=== PATIENT | female | born 1970 | race Caucasian/White ===

== ENCOUNTER 2018-07-19 16:16 | Inpatient (IN) | payer OTHER ==
[~2018-07-19] VITALS: Ht 167.6 cm; Wt 104.3 kg
--- OUTSIDE RECORDS SUMMARY | 2018-07-19 16:19 | XMS REPORT | Summary of Care ---
Author Author JORGE SHELTON M.D. Organization Unknown Address [facility] Phone Unavailable Care Team Providers Care Last Waxer Name Role Phone JORGE SHELTON M.D. Unavailable Unavailable VALERIE LEIVA, ALEENA Roberts Unavailable Unavailable Unavailable Unavailable Functional Status Name Dates Details Functional status health issues are not documented Status: Name Dates Details Cognitive status health issues are not documented Status: Problems Name Dates Details Raised antibody titer (795.79, R76.0) Status: Active Inflammatory arthritis (714.9, M19.90) Status: Active Medications Name Dates Details Ibuprofen 800 MG Oral Tablet PRN Active Tylenol TABS * Refills: 0 Active Allergies and Adverse Reactions Name Dates Details codeine (Allergy) Status: Active Procedures Procedure Dates Details [Q] LEA IFA SCREEN W/REFL TO TITER/PATTERN,IFA(REFL) Date: 05-Oct-2017 [QLH] COMPLEMENT COMPONENT C3C Date: 05-Oct-2017 [QLH] COMPLEMENT COMPONENT C4C Date: 05-Oct-2017 [QLH] DNA (DS) ANTIBODY Date: 05-Oct-2017 XRAY Hand AP lateral oblique Bilateral 70032 Date: 05-Oct-2017 XRAY Foot 3 views Bilateral [id number] Date: 05-Oct-2017 XRAY Spine cervical 2 or 3 view [id number] Date: 05-Oct-2017 Immunization Name Dates Details Immunizations not documented Social History Name Dates Details Unknown if ever smoked Vital Signs Date Test Result Details [id number] BP Systolic 126 mm[Hg] Status: Comments: Location: LUE; Position: Sitting BP Diastolic 86 mm[Hg] Status: Comments: Location: LUE; Position: Sitting Height 65 in Status: Weight 230 lb Status: Body Mass Index Calculated 38.27 kg/m2 Status: Body Surface Area Calculated 2.1 m2 Status: Heart Rate 90 /min Status: Comments: Location: L Carotid; Results Date Description Value Details Results not documented Plan of Care Name Dates Details Planned Observations Planned Goals not documented Planned Encounters Appointment; JORGE SHELTON M.D. On: 19-Oct-2017 8:00 Interventions Provided Labs/Procedures/Imaging* [Q] LEA IFA SCREEN W/REFL TO TITER/PATTERN,IFA(REFL); To Be Done: 05 Oct 2017 * [QLH] COMPLEMENT COMPONENT C3C; To Be Done: 05 Oct 2017 * [QLH] COMPLEMENT COMPONENT C4C; To Be Done: 05 Oct 2017 * [QLH] DNA (DS) ANTIBODY; To Be Done: 05 Oct 2017 * XRAY Foot 3 views Bilateral 56369; To Be Done: 05 Oct 2017 * XRAY Hand AP lateral oblique Bilateral 81557; To Be Done: 05 Oct 2017 * XRAY Spine cervical 2 or 3 view [id number]; To Be Done: 05 Oct 2017 Instructions Name Dates Details Instructions not documented Encounters Appointment; JORGE SHELTON M.D. Encounter Diagnosis: Problem not documented On: 05-Oct-2017 11:00
--- OUTSIDE RECORDS SUMMARY | 2018-07-19 16:19 | XMS REPORT | Summary of Care ---
Author Author [facility] Outpatient Imaging [facility] Address Unknown Phone Unavailable Encounter HQ Encntr_alias(FIN) [id number] Date(s): 10/12/17 - 10/12/17 [facility] Outpatient Imaging [facility] [address] [facility], [address] [place] [phone] Discharge Disposition: Home or Self Care Attending Physician: Clari Rashid MD Vital Signs No data available for this section Problem List No data available for this section Allergies, Adverse Reactions, Alerts No data available for this section Medications No data available for this section Results No data available for this section Immunizations No data available for this section Procedures No data available for this section Social History No data available for this section Assessment and Plan No data available for this section
--- OUTSIDE RECORDS SUMMARY | 2018-07-19 16:19 | XMS REPORT | Continuity of Care Document ---
Author Author [facility] Organization Interface Address Unknown Phone Unavailable Problems Problem Status Onset Date Classification Date Reported Comments Source M19.90 - UNSPECIFIED OSTEOARTHRITIS, UN Active 10/06/2017 [facility] Medications Medication Details Route Status Patient Instructions Ordering Provider Order Date Source Allergies, Adverse Reactions, Alerts Substance Category Reaction Severity Reaction type Status Date Reported Comments Source Immunizations Immunization Date Given Site Status Last Updated Comments Source Results Order Name Results Value Reference Range Date Interpretation Comments Source Hand 3 views Bilateral DX Hand 3 views Bilateral DX EXAM: XR BILATERAL HAND 3 VIEWS DATE: 10/12/2017 8:00 AM CDT INDICATION: - M19.90 Unspecified osteoarthritis, unspecified site COMPARISON: None TECHNIQUE: PA, lateral and oblique radiographs of the bilateral hands. FINDINGS: Bone mineral density appears normal. No joint space narrowing or erosions. Tiny osteophytes scattered throughout the PIP and MCP joints. 5 mm benign-appearing lytic lesion of the right 4th proximal phalanx head. No soft tissue swelling or abnormal soft tissue calcifications. IMPRESSION: 1. Minimal osteophyte formation of the MCP and PIP joints. No other arthritic changes of the hands. 2. Benign-appearing 5 mm lytic lesion of the right 4th proximal phalanx head. 10/12/2017 - - Read by: Macario Chang MD Dictated Date/time: 10/12/17 10:15 Electronically Signed by: Macario Chang MD 10/12/17 10:16 FINAL REPORT [facility] Foot 3 views bilateral DX Foot 3 views bilateral DX EXAM: XR BILATERAL FOOT 3 VIEWS DATE: 10/12/2017 8:00 AM CDT INDICATION: - M19.90 Unspecified osteoarthritis, unspecified site COMPARISON: None TECHNIQUE: AP, lateral and oblique radiographs of the feet Laterality: Bilateral FINDINGS: Bone mineral density appears normal. No joint space narrowing, osteophytes, or erosions. Bilateral moderate Achilles calcaneal enthesophytes. No soft tissue swelling or abnormal soft tissue calcifications. IMPRESSION: 1. No arthritic changes of the feet. 2. Bilateral moderate Achilles calcaneal enthesophyte formation. 10/12/2017 - - Read by: Macario Chang MD Dictated Date/time: 10/12/17 10:16 Electronically Signed by: Macario Chang MD 10/12/17 10:17 FINAL REPORT [facility] Spine cervical 2 or 3 view DX Spine cervical 2 or 3 view DX EXAM: XR CERVICAL SPINE 3 VIEWS DATE: 10/12/2017 8:00 AM CDT INDICATION: - M19.90 Unspecified osteoarthritis, unspecified site COMPARISON: None TECHNIQUE: AP, open-mouth odontoid and lateral radiographs of the cervical spine show from the skull base through T1. DISCUSSION: Straightening of cervical spine. Vertebral body heights are maintained. Mild height loss and small vertebral body osteophytes at C5-C6. Moderate disc height loss and small vertebral osteophytes at C6-C7. Elongation of the bilateral C7 transverse processes. IMPRESSION: Mild C5-C6 and moderate C6-C7 degenerative disc disease. 10/12/2017 - - Read by: Macario Chang MD Dictated Date/time: 10/12/17 10:19 Electronically Signed by: Macario Chang MD 10/12/17 10:20 FINAL REPORT [facility] Vital Signs Vital Sign Value Date Comments Source Encounters Location Location Details Encounter Type Encounter Number Reason For Visit Attending Provider ADM Date DC Date Status Source [facility] - [place] [facility] [id number] Clari Rashid 10/12/2017 10/13/2017 [facility] [place] Procedures Procedure Code Date Perfomer Comments Source
[2018-07-19 17:50] LABS: BASOPHILS % 0.4 % (0.0-1.0); EOSINOPHILS # (AUTO) 0.1 (0.0-0.4); EOSINOPHILS % 0.8 % (0.0-6.0); HEMATOCRIT 38.4 % (34.2-44.1); HEMOGLOBIN 12.6 g/dL (12.0-16.0); LYMPHOCYTES # (AUTO) 1.1 (1.0-3.2); LYMPHOCYTES % 11.7 % (18.0-39.1); MEAN CORPUSCULAR HEMOGLOBIN 29.5 pg (28-32); MEAN CORPUSCULAR HGB CONC 32.8 g/dL (31-35); MEAN CORPUSCULAR VOLUME 89.9 fL (81-99); MONOCYTES # (AUTO) 0.5 (0.2-0.8); MONOCYTES % 5.7 % (4.4-11.3); NEUTROPHILS # (AUTO) 7.3 (2.1-6.9); NEUTROPHILS % 81.2 % (38.7-80.0); PLATELET COUNT 324 x10e3/uL (140-360); RED BLOOD COUNT 4.27 x10e6/uL (3.6-5.1); RED CELL DISTRIBUTION WIDTH 12.8 % (11.7-14.4)
[2018-07-19] MEDS ORDERED: GLUCAGON FOR INJ 1 MG VIAL IV ONE (18:00)
[2018-07-19 18:02] LABS: ALBUMIN 3.8 g/dL (3.5-5.0); ALBUMIN/GLOBULIN RATIO 1.1 (0.8-2.0); ANION GAP 12.1 mmol/L (8-16); CALCIUM 9.3 mg/dL (8.4-10.2); CREATININE, SERUM 1.09 mg/dL (0.57-1.11); POTASSIUM 4.1 mmol/L (3.5-5.1)
[2018-07-19 18:35] LABS: AMYLASE 114 U/L (25-125); LIPASE 103 U/L (8-78)
[2018-07-19 18:54] LABS: CREATINE KINASE 91 IU/L (29-168)
--- NOTE | 2018-07-19 19:10 | NUR ---
REPORT AND PATIENT CARE ENDORSED TO ARLENE PADGETT RN
--- NOTE | 2018-07-19 19:12 | Diagnostic Imaging Report ---
A single frontal view of the chest. HISTORY: Pain COMPARISON: None available. DISCUSSION: Portable technique, limits sensitivity of the exam. Soft tissue attenuation partially limits sensitivity of the exam. Overlying monitoring leads. Tubes/Lines: None Lungs and pleura: Mildly low lung volumes result in bibasilar vascular crowding, accentuation of the pulmonary interstitial markings, central pulmonary vasculature, and the cardiac silhouette. Allowing for these limitations, the findings are as follows: No evidence of a consolidative pneumonia or pulmonary alveolar edema. No definite pleural effusion or pneumothorax is identified. Heart and mediastinum: The cardiomediastinal silhouette appears unremarkable. Bones and soft tissues: Appear unremarkable, given this limited exam. IMPRESSION: No acute radiographic abnormality. Signed by: Dr. Gautam Man D.O., M.M.M. on 07/19/2018 7:09 PM
[2018-07-19 19:31] LABS: BILIRUBIN,URINE NEGATIVE (NEGATIVE); CLARITY,URINE HAZY (CLEAR); COLOR,URINE YELLOW (YELLOW); KETONES,URINE NEGATIVE (NEGATIVE); LEUKOCYTE ESTERASE ,URINE NEGATIVE (NEGATIVE); NITRITE,URINE NEGATIVE (NEGATIVE); PROTEIN,URINE DIPSTICK NEGATIVE (NEGATIVE); URINE UROBILINOGEN 4 mg/dL (0.2 - 1)
[2018-07-19 19:32] LABS: BACTERIA,URINE MANY /HPF; EPITHELIAL CELLS,URINE MODERATE /LPF; RBC,URINE 0-5 /HPF (0-5)
--- NOTE | 2018-07-19 21:39 | Diagnostic Imaging Report ---
EXAM: Right Upper Quadrant Ultrasound INDICATION: rule out stone COMPARISON: None. TECHNIQUE: Transverse and longitudinal images of the right upper abdomen were obtained. FINDINGS: Liver: Size: 13.8 cm in the right midclavicular line, normal Appearance: Increased echogenicity, smooth contour Mass: No focal masses Gallbladder: Stones/Sludge: Multiple shadowing stones Wall: 0.6 cm Appearance: No pericholecystic fluid or hydrops. Sonographic Garcia's Sign: Negative Bile Ducts: Intrahepatic Ducts: No dilatation Extrahepatic Ducts: Common bile duct measures 0.7 cm, mildly dilated Pancreas: Not well visualized Right Kidney: Size: 10.9 cm Echogenicity: Normal Parenchymal thickness: Normal Collecting system: No hydronephrosis Stones: None Cyst/Mass: None Vessels: Aorta: Visualized portions are normal Inferior Vena Cava: Not well visualized Main Portal Vein: 0.9 cm, normal size with hepatopetal flow. Free Fluid: No ascites or pleural effusion IMPRESSION: 1. Cholelithiasis with gallbladder wall thickening without other evidence to suggest cholecystitis. 2. Mild CBD dilatation raising the possibility of choledocholithiasis. Consider correlation with labs and MRCP for further evaluation. 3. Hepatic steatosis. Signed by: DR. Elias Louis MD on 07/19/2018 9:36 PM
[2018-07-19] MEDS ORDERED: HYDROMORPHONE 2MG/ML 2 MG/ML ML IV PRN (22:30)
[2018-07-19] MEDS ORDERED: ONDANSETRON HCL INJ 2MG/ML 2ML 2 MG/ML VIAL IV PRN (22:30)
--- OUTSIDE RECORDS SUMMARY | 2018-07-19 22:52 | XMS REPORT ---
Author [email or web address] Address Unknown Phone Unavailable Care Team Providers Care Second Crusher Name Role Phone Wendy MILIAN Unavailable Unavailable Problems This patient has no known problems. Allergies, Adverse Reactions, Alerts This patient has no known allergies or adverse reactions. Medications This patient has no known medications. Results Test Description Test Time Test Comments Text Results Atomic Results Result Comments US GALLBLADDER 2018-07-19 21:31:00 [facility] [address] [address] Patient Name: FITZ KOTHARI MR #: [id number] : 1970 Age/Sex: 48/F Req #: [id number] Adm Physician: Ordered by: LESA ORO COLORING CHECKER Report #: [id number] Location: ER Room/Bed: Procedure: [id number] US/US GALLBLADDER Exam Date: 07/19/18 Exam Time: 2020 REPORT STATUS: Signed EXAM: Right Upper Quadrant Ultrasound INDICATION: rule out stone COMPARISON: None. TECHNIQUE: Transverse and longitudinal images of the right upper abdomen were obtained. FINDINGS: Liver: Size: 13.8 cm in the right midclavicular line, normal Appearance: Increased echogenicity, smooth contour Mass: No focal masses Gallbladder: Stones/Sludge: Multiple shadowing stones Wall: 0.6 cm Appearance: No pericholecystic fluid or hydrops. Sonographic Garcia's Sign: Negative Bile Ducts: Intrahepatic Ducts: No dilatation Extrahepatic Ducts: Common bile duct measures 0.7 cm, mildly dilated Pancreas: Not well visualized Right Kidney: Size: 10.9 cm Echogenicity: Normal Parenchymal thickness: Normal Collecting system: No hydronephrosis Stones: None Cyst/Mass: None Vessels: Aorta: Visualized portions are normal Inferior Vena Cava: Not well visualized Main Portal Vein: 0.9 cm, normal size with hepatopetal flow. Free Fluid: No ascites or pleural effusion IMPRESSION: 1. Cholelithiasis with gallbladder wall thickening without other evidence to suggest cholecystitis. 2. Mild CBD dilatation raising the possibility of choledocholithiasis. Consider correlation with labs and MRCP for further evaluation. 3. Hepatic steatosis. Signed by: DR. Elias Rodriguez MD on 07/19/2018 9:36 PM Dictated By: ELIAS RODRIGUEZ MD 35 Transcribed By: FLO on 07/19/182135 COPY TO: LESA ORO NP CHEST SINGLE (PORTABLE) 2018-07-19 19:07:00 [address] [address] Patient Name: FITZ KOTHARI MR #: [id number] : 1970 Age/Sex: 48/F Req #: [id number] Adm Physician: Ordered by: LESA ORO NP Report #: [id number] Location: ER Room/Bed: Procedure: [id number] DX/CHEST SINGLE (PORTABLE) Exam Date: 07/19/18 Exam Time: 1810 REPORT STATUS: Signed A single frontal view of the chest. HISTORY: Pain COMPARISON: None available. DISCUSSION: Portable technique, limits sensitivity of the exam. Soft tissue attenuation partially limits sensitivity of the exam. Overlying monitoring leads. Tubes/Lines: None Lungs and pleura: Mildly low lung volumes result in bibasilar vascular crowding, accentuation of the pulmonary interstitial markings, central pulmonary vasculature, and the cardiac silhouette. Allowing for these limitations, the findings are as follows: No evidence of a consolidative pneumonia or pulmonary alveolar edema. No definite pleural effusion or pneumothorax is identified. Heart and mediastinum: The cardiomediastinal silhouette appears unremarkable. Bones and soft tissues: Appear unremarkable, given this limited exam. IMPRESSION: No acute radiographic abnormality. Signed by: Dr. Guerrero Man D.O., M.M.M. on 07/19/2018 7:09 PM Dictated By: GUERRERO MAN DO 08 Transcribed By: FLO on 07/19/181908 COPY TO: LESA ORO NP
[2018-07-19] MEDS: SODIUM CHLORIDE 0.9% 1000ML 1,000 ML IV SCH (23:15)
[2018-07-19] MEDS: PIPER-TAZ 3.375 GM / NS 50ML IV SCH (23:16)
[2018-07-20] MEDS ORDERED: PIPER-TAZ 3.375 GM / NS 50ML IV SCH (06:00)
[2018-07-20] MEDS: PIPER-TAZ 3.375 GM / NS 50ML IV SCH ×2 (06:18→13:51)
[2018-07-20 06:21] LABS: BASOPHILS % 0.6 % (0.0-1.0); EOSINOPHILS # (AUTO) 0.3 (0.0-0.4); EOSINOPHILS % 3.7 % (0.0-6.0); HEMATOCRIT 35.4 % (34.2-44.1); HEMOGLOBIN 11.7 g/dL (12.0-16.0); LYMPHOCYTES # (AUTO) 2.1 (1.0-3.2); LYMPHOCYTES % 30.2 % (18.0-39.1); MEAN CORPUSCULAR HEMOGLOBIN 29.5 pg (28-32); MEAN CORPUSCULAR HGB CONC 33.1 g/dL (31-35); MEAN CORPUSCULAR VOLUME 89.4 fL (81-99); MONOCYTES # (AUTO) 0.8 (0.2-0.8); MONOCYTES % 11.2 % (4.4-11.3); NEUTROPHILS # (AUTO) 3.7 (2.1-6.9); PLATELET COUNT 290 x10e3/uL (140-360); RED BLOOD COUNT 3.96 x10e6/uL (3.6-5.1); RED CELL DISTRIBUTION WIDTH 12.8 % (11.7-14.4)
[2018-07-20 06:38] LABS: ALANINE AMINOTRANSFERASE 131 IU/L (0-55); ALBUMIN 3.3 g/dL (3.5-5.0); ALBUMIN/GLOBULIN RATIO 1.1 (0.8-2.0); ALKALINE PHOSPHATASE 119 IU/L (40-150); AMYLASE 83 U/L (25-125); ANION GAP 11.9 mmol/L (8-16); BLOOD UREA NITROGEN 12 mg/dL (7-26); BUN/CREATININE RATIO 13 (6-25); CALCIUM 8.7 mg/dL (8.4-10.2); CARBON DIOXIDE 22 mmol/L (22-29); CHLORIDE 109 mmol/L (98-107); EST GLOMERULAR FILTRATION RATE > 60 ML/MIN (60-); GLUCOSE 74 mg/dL (74-118); LIPASE 54 U/L (8-78); POTASSIUM 3.9 mmol/L (3.5-5.1); SODIUM 139 mmol/L (136-145)
[2018-07-20] MEDS: SODIUM CHLORIDE 0.9% 1000ML 1,000 ML IV SCH ×3 (06:42→18:30)
[2018-07-20 06:57] LABS: CHOL/HDL RATIO 2.9 (3.0-3.6)
--- NOTE | 2018-07-20 07:19 | NUR ---
REPORT GIVEN TO DAYAN ORNELAS
--- NOTE | 2018-07-20 07:40 | History and Physical ---
PRIMARY CARE PHYSICIAN: [facility] physician. CHIEF COMPLAINT: Epigastric pain. HISTORY OF PRESENT ILLNESS: This is a 48-year-old woman with a history of obesity, now developing severe epigastric pain, prompting a visit to the hospital. Denies any nausea, vomiting, diarrhea. Here she was found to have cholelithiasis and cholecystitis and signs of common bile duct dilatation. She was admitted for further evaluation and management. PAST MEDICAL HISTORY: Obesity, status post bariatric surgery. PAST SURGICAL HISTORY: x2, bariatric surgery. ALLERGIES: PER ELECTRONIC MEDICAL RECORD. FAMILY/SOCIAL HISTORY: The patient is . No alcohol, illicits or cigarettes. MEDICATIONS: Per electronic medical record. REVIEW OF SYSTEMS: Denies any fever, chills, sweats, nausea, vomiting, diarrhea, headache, vision changes, skin rash. PHYSICAL EXAMINATION VITAL SIGNS: Have been reviewed. GENERAL: A tired-appearing woman resting in bed. HEENT: Anicteric. CARDIOVASCULAR: Normal S1 and S2. LUNGS: Moderate breath sounds. ABDOMEN: Soft, nondistended. Negative Garcia sign. No right upper quadrant tenderness. EXTREMITIES: No edema or calf tenderness. NEUROLOGIC: Alert, oriented x3. She moves all extremities. SKIN: Dry. PSYCHIATRIC: Normal affect. LABS: Reviewed. MEDICATIONS: Reviewed. ASSESSMENT: A 48-year-old woman. 1. Cholelithiasis. 2. Acute cholecystitis. 3. Common bile duct dilatation. 4. Acute kidney injury. 5. Obesity. 6. Urinary tract infection. PLAN 1. Obtain a CT to evaluate the common bile duct. 2. Surgical and GI consultations. 3. Rehydrate with fluids and continue IV Zosyn. 4. Use SCDs for DVT prophylaxis and Pepcid for GI prophylaxis. 5. Disposition: Follow up MRCP and follow up on consultations. Job#: [id number]
--- NOTE | 2018-07-20 08:04 | NUR ---
pt assessed denies any complaints at this time resting comfortably in bed
[2018-07-20] MEDS: FAMOTIDINE 20 MG/2 ML VIAL IV SCH ×2 (08:26→18:30)
--- NOTE | 2018-07-20 12:07 | Diagnostic Imaging Report ---
Magnetic resonance cholangiopancreatography Clinical History: Choledocholithiasis. Comparison: None. Correlation with ultrasound of gallbladder dated 07/19/2018. Technique: Multiplanar, multisequence MRCP was performed, with sequences including coronal turbo spin-echo T1-weighted scans, [facility] MRCP scans, coronal spin, coronal MPR 2, SMRCP 3D HR, [facility] MRCP BALTAZAR. Findings: LOWER THORAX: Unremarkable. HEPATOBILIARY: Diffuse signal drop of the hepatic parenchyma on the T1 out of phase scans consistent with steatosis. No focal hepatic lesions. No biliary ductal dilation. 2 mm hyperintense focus within the distal CBD in the pancreatic head region on coronal image 20 series 8 consistent without correlate on axial images. GALLBLADDER: Numerous small calculi within the gallbladder lumen. No wall thickening. SPLEEN: No splenomegaly. PANCREAS: No focal masses or ductal dilatation. ADRENALS: No adrenal nodules KIDNEYS/URETERS: Kidneys enhance symmetrically. No hydronephrosis. No cystic or solid mass lesions. No stones. GI TRACT: No abnormal distention, wall thickening, or evidence of bowel obstruction. Appendix is normal. LYMPH NODES: No lymphadenopathy. VESSELS: Unremarkable. PERITONEUM / RETROPERITONEUM: No free air or fluid. BONES: No acute osseous abnormality. SOFT TISSUES: Unremarkable. IMPRESSION: 1. Possible single nonobstructing calculus within the distal common bile duct. Residual No biliary dilatation. 2. Cholelithiasis. 3. Hepatic steatosis. Signed by: Dr. Sheldon Blanc M.D. on 07/20/2018 12:04 PM
--- NOTE | 2018-07-20 13:36 | NUR ---
pt resting comfortably in bed states she is ok and denies any complaints at this time
--- NOTE | 2018-07-20 14:27 | NUR ---
CHICKEN AND BEEF BROTH PROVIDED TO PT
--- NOTE | 2018-07-20 15:02 | Consultation ---
DATE OF CONSULTATION: July 20, 2018 CHIEF COMPLAINT: Abdominal pain. HISTORY OF PRESENT ILLNESS: The patient is a 48-year-old female with a 2-day history of pain in the epigastric area with some nausea, but no vomiting. The pain is radiating to the back. PAST MEDICAL HISTORY: Positive for bariatric surgery, including sleeve gastrectomy in 2014 and . SOCIAL HABITS: Patient denies smoking or alcohol abuse. REVIEW OF SYSTEMS: No chest pain or shortness of breath. ALLERGIES: CODEINE AND TRAMADOL. PHYSICAL EXAMINATION VITALS: Stable. Afebrile. GENERAL: Patient is awake, alert and in mild discomfort. HEENT: Sclerae nonicteric. NECK: Supple. LUNGS: Clear. HEART: Regular rate and rhythm. ABDOMEN: Soft with some guarding in the epigastrium with no rebound. White cell count is 6, hemoglobin 11. Creatinine 0.9. Liver function tests with elevated transaminase of 150, bilirubin of 1.1. Lipase 54. Ultrasound of the gallbladder showed gallstones with gallbladder wall thickening, mild bile duct dilatation. MRCP showed possibility of bile duct stone. ASSESSMENT: Cholelithiasis and cholecystitis with possible choledocholithiasis. PLAN: Patient will need cholecystectomy. Intraoperative cholangiogram. If stone is confirmatory, then proceed with ERCP. Job#: [id number] [facility]
[2018-07-20 17:09] VITALS: BP 119/71
--- NOTE | 2018-07-20 17:15 | NUR ---
received to rm no distress noted, updated on poc voiced understanding, denies pain at this time, ivf infusing to r ac 20g no ss of infiltration noted, no other co vocied call light in reach will continue to monitor
[2018-07-20 17:19] VITALS: BP 119/71
[2018-07-20 17:31] VITALS: BP 119/71
--- NOTE | 2018-07-20 18:30 | NUR ---
iv infiltrated, 20g to l fa x 1 stick tolerated well, ivf infusing, call light in reach will continue to monitor
--- NOTE | 2018-07-20 19:10 | NUR ---
Received patient awake on bed, on nothing by mouth maintained, with ongoing IV fluids to the left FA 20G, no complaints of pain at this time. Call light within easy reach, advised to call for assistance when needed. Will continue to monitor
[2018-07-20 20:00] VITALS: BP 134/63
--- NOTE | 2018-07-20 20:53 | NUR ---
Spoke to Dr. Sapp, with orders, patient is for laparoscopic cholecystectomy tomorrow and MD will see patient in the morning
[2018-07-20 21:00] VITALS: BP 134/63
--- NOTE | 2018-07-20 21:10 | NUR ---
Dr. Lisa Simons aware about the consult
--- NOTE | 2018-07-20 21:25 | NUR ---
patient signed the consent
[2018-07-20] MEDS: PIPER-TAZ 3.375 GM 50 ML IV SCH (21:38)
[2018-07-21] VITALS (8 sets, daily range): BP systolic 114–164; BP diastolic 56–94
[2018-07-21] MEDS: SODIUM CHLORIDE 0.9% 1000ML 1,000 ML IV SCH ×4 (01:47→21:09)
[2018-07-21] MEDS: PIPER-TAZ 3.375 GM 50 ML IV SCH ×3 (05:13→21:09)
--- NOTE | 2018-07-21 06:16 | NUR ---
IM- Progress Note O./N; choledocholithiasis REVIEW OF SYSTEMS: Denies any fever, chills, sweats, nausea, vomiting, diarrhea, headache, vision changes, skin rash. PHYSICAL EXAMINATION VITAL SIGNS: Have been reviewed. GENERAL: A tired-appearing woman resting in bed. HEENT: Anicteric. CARDIOVASCULAR: Normal S1 and S2. LUNGS: Moderate breath sounds. ABDOMEN: Soft, nondistended. Negative Garcia sign. No right upper quadrant tenderness. EXTREMITIES: No edema or calf tenderness. NEUROLOGIC: Alert, oriented x3. She moves all extremities. SKIN: Dry. PSYCHIATRIC: Normal affect. LABS: Reviewed. MEDICATIONS: Reviewed. ASSESSMENT: A 48-year-old woman. 1. Cholelithiasis. 2. Acute cholecystitis. 3. Common bile duct dilatation. 4. Acute kidney injury. 5. Obesity. 6. Urinary tract infection. PLAN 1. Obtain a CT to evaluate the common bile duct. 2. Surgical and GI consultations. 3. Rehydrate with fluids and continue IV Zosyn. 4. Use SCDs for DVT prophylaxis and Pepcid for GI prophylaxis. 5. Disposition: Follow up MRCP and follow up on consultations. 07/21 Choledocholithiasis- sx and ERCP pending; Facundo Hunter MD, PhD.
[2018-07-21] MEDS: FAMOTIDINE 20 MG/2 ML VIAL IV SCH ×2 (09:24→18:43)
--- NOTE | 2018-07-21 09:59 | NUR ---
Spoke with Dr. Sapp and to add Cholangiogram to procedure today and patient notified and consent in place.
[2018-07-21] MEDS ORDERED: BUPIVACAINE 0.5%/EPI 30 ML SDV INJ ONE (11:30)
--- NOTE | 2018-07-21 11:58 | NUR ---
Patient attempting to urinate at this time for urine collection to completed test.
--- NOTE | 2018-07-21 12:19 | NUR ---
Patient picked up for procedure at this time, urine obtained for test and negative
[2018-07-21] MEDS ORDERED: KETOROLAC TROMETHAMINE 30 MG/ML VIAL ONE (13:33)
[2018-07-21] MEDS ORDERED: SEVOFLURANE INHAL SOLN 250 ML PEN BTL ONE (13:33)
[2018-07-21] MEDS ORDERED: ONDANSETRON HCL INJ 2MG/ML 2ML 2 MG/ML VIAL ONE (13:33)
[2018-07-21] MEDS ORDERED: DEXAMETHASONE SOD PHOS INJ 4 MG/ML VIAL ONE (13:33)
[2018-07-21] MEDS ORDERED: LIDOCAINE HCL 2% LOCAL INJ 5 ML SDV VIAL INJ ONE (13:33)
[2018-07-21] MEDS ORDERED: PROPOFOL IV EMULSION 10 MG/ML 20 ML VIAL ONE (13:33)
[2018-07-21] MEDS ORDERED: ROCURONIUM BROMIDE 10 MG/ML 5ML VIAL ONE (13:33)
[2018-07-21] MEDS ORDERED: ACETAMINOPHEN 1000 MG/100 ML IV ONE (13:33)
[2018-07-21] MEDS ORDERED: MIDAZOLAM HCL 2 MG/2 ML VIAL ONE (13:38)
[2018-07-21] MEDS ORDERED: FENTANYL CITRATE/PF 100MCG/2 ML INJ ONE ×2 (13:38→17:50)
--- NOTE | 2018-07-21 15:08 | NUR ---
Patient was taken to Pre-op and surgeon will be running late for procedure and patient brought back to her room.
[2018-07-21] MEDS ORDERED: IOPAMIDOL 200 MG/ML 20 ML VIAL IT ONE (15:58)
--- NOTE | 2018-07-21 17:38 | Diagnostic Imaging Report ---
EXAM: Intraoperative cholangiogram INDICATION: Evaluate for stone MRCP 07/20/2018 RADIATION DOSE: Fluoroscopy Time: 18 seconds Total dose: 3.1 mGy Dose area product: 114.5 cGycm2 Technique: Intraoperative cholangiography images were provided for Radiology interpretation. Findings: The right central hepatic ductal system is cannulated. No evidence of biliary ductal dilatation. The common bile duct is opacified to the mid/distal portion. However no opacification is present in the distal most common bile duct. Contrast is seen in the duodenum. FINDINGS: No contrast is seen in the distal common bile duct, which may represent suspected stone seen on MRCP from 07/20/2018. Contrast is seen within the duodenum, suggesting that this filling defect is likely nonobstructive. Correlation with lab results is suggested and ERCP may be considered. Signed by: Dr. Altagracia Jones MD on 07/21/2018 5:35 PM
--- NOTE | 2018-07-21 18:14 | Operative Report ---
DATE OF PROCEDURE: July 21, 2018 PREOPERATIVE DIAGNOSES: Cholecystitis and possible choledocholithiasis. POSTOPERATIVE DIAGNOSES: Cholecystitis and possible choledocholithiasis. OPERATIVE PROCEDURES: Laparoscopic cholecystectomy, intraoperative cholangiogram. STONE DRILLER HELPER: None. ANESTHESIA: General endotracheal, Dr. Corado. INDICATIONS: A 48-year-old female with history of abdominal pain with gallstones. Patient consented for laparoscopic cholecystectomy with cholangiogram as the MRCP showed possible bile duct stone. PROCEDURE FINDINGS: Flow of contrast into the duodenum with possible distal bile duct defect suggestive of small stone. DESCRIPTION OF PROCEDURE: The patient was brought to the OR intubated. The abdomen was prepped with alcohol and draped in sterile fashion. An infraumbilical incision was made and a 10-mm port was inserted. Insufflation was then begun. Under direct vision, the other port sites were placed in mid epigastric and right upper quadrant. Gallbladder was chronically inflamed and distended. Fundus retracted in cephalad direction. Neck of the gallbladder retracted laterally with blunt dissection. We isolated the cystic duct and cystic artery and triply clipped the cystic artery and divided between clips. The cystic duct was clipped high on the infundibulum with the gallbladder. A small radial incision was made on the cystic duct and the cholangiogram catheter was inserted into the cystic duct and full strength contrast injected through the cholangiogram catheter showing flow into the duodenum with a possible small defect in the distal bile duct. At this point, gutter was removed. Cystic duct was clipped and then tied with an Endoloop 0 PDS and the cystic duct divided. Cystic gallbladder then detached from liver with cautery and taken out through the umbilical port site. After irrigated with saline solution, hemostasis was achieved with cautery. A 19-Chinese drain was placed in the Sesay pouch and taken out through the right upper quadrant port site. All other ports removed under direct vision. Fascia closure with 0 Vicryl. Skin closed with subcuticular stitch. Patient was extubated and transported to recovery room. Estimated blood loss was 20 mL. Job#: [id number] RTY
--- NOTE | 2018-07-21 18:35 | NUR ---
Received patient from PACU s/p Lap Jeimy alert and responsive, 4 band aids to abd, DESTINY drain in place, pains well managed, no resp distress, VSS, in be and call light within reach, offered beriatric clear liq diet, will monitor.
--- NOTE | 2018-07-21 19:20 | NUR ---
REPORT TAKEN FROM AM RN.LYEING QUIETLY IN THE BED.NO PAIN VOICED.ASSESSMENT DONE.4 TROCHAR SITES NOTED @ THE ABDOMEN DRY AND INTACT.DESTINY DRAIN IS PRESENT @ RT.ABDOMEN.SCD IS PLACED.BED LOCKED AND IN LOWEST POSITION.PHONE AND CALL LIGHT WITHIN REACH.INSTRUCTED TO CALL FOR ASSISTANCE NEEDED.
[2018-07-22] VITALS (7 sets, daily range): BP systolic 120–151; BP diastolic 61–91
--- NOTE | 2018-07-22 00:24 | NUR ---
Ambulated in the shoemaker way.voided.denied pain medication.stable condition.
[2018-07-22] MEDS: SODIUM CHLORIDE 0.9% 1000ML 1,000 ML IV SCH ×4 (03:40→23:35)
[2018-07-22] MEDS: PIPER-TAZ 3.375 GM 50 ML IV SCH ×3 (05:40→21:49)
[2018-07-22 06:00] LABS: ALANINE AMINOTRANSFERASE 71 IU/L (0-55); ALBUMIN 3.2 g/dL (3.5-5.0); ALKALINE PHOSPHATASE 86 IU/L (40-150); ANION GAP 14.1 mmol/L (8-16); BLOOD UREA NITROGEN 11 mg/dL (7-26); BUN/CREATININE RATIO 12 (6-25); CALCIUM 8.5 mg/dL (8.4-10.2); CARBON DIOXIDE 19 mmol/L (22-29); CHLORIDE 107 mmol/L (98-107); CREATININE, SERUM 0.89 mg/dL (0.57-1.11); EST GLOMERULAR FILTRATION RATE > 60 ML/MIN (60-); GLUCOSE 86 mg/dL (74-118); POTASSIUM 4.1 mmol/L (3.5-5.1); SODIUM 136 mmol/L (136-145)
--- NOTE | 2018-07-22 06:50 | NUR ---
REPORT GIVEN TO THE ONCOMING RN.WALKING ROUNDS DONE.STABLE CONDITION.
[2018-07-22] MEDS: FAMOTIDINE 20 MG/2 ML VIAL IV SCH ×2 (08:19→17:35)
--- NOTE | 2018-07-22 13:17 | NUR ---
Patient alert and responsive, rounds by Dr. Sapp and orders to start Low fat GI soft diet, patient observed multiple times ambulating hallway, will monitor.
--- NOTE | 2018-07-22 17:04 | NUR ---
IM- Progress Note O./N; choledocholithiasis REVIEW OF SYSTEMS: Denies any fever, chills, sweats, nausea, vomiting, diarrhea, headache, vision changes, skin rash. PHYSICAL EXAMINATION VITAL SIGNS: Have been reviewed. GENERAL: A tired-appearing woman resting in bed. HEENT: Anicteric. CARDIOVASCULAR: Normal S1 and S2. LUNGS: Moderate breath sounds. ABDOMEN: Soft, nondistended. Negative Garcia sign. No right upper quadrant tenderness. EXTREMITIES: No edema or calf tenderness. NEUROLOGIC: Alert, oriented x3. She moves all extremities. SKIN: Dry. PSYCHIATRIC: Normal affect. LABS: Reviewed. MEDICATIONS: Reviewed. ASSESSMENT: A 48-year-old woman. 1. Cholelithiasis. 2. Acute cholecystitis. 3. Common bile duct dilatation. 4. Acute kidney injury. 5. Obesity. 6. Urinary tract infection. PLAN 1. Obtain a CT to evaluate the common bile duct. 2. Surgical and GI consultations. 3. Rehydrate with fluids and continue IV Zosyn. 4. Use SCDs for DVT prophylaxis and Pepcid for GI prophylaxis. 5. Disposition: Follow up MRCP and follow up on consultations. 07/21 Choledocholithiasis- sx and ERCP pending; 07/22 s/p Lap ramo and DESTINY drain; Facundo Hunter MD, PhD.
--- NOTE | 2018-07-22 18:01 | NUR ---
Diet upgraded to GI soft, tolerated well, no N/V, ambulating, DESTINY draining in place, output 40cc, denies any pains, will monitor.
--- NOTE | 2018-07-22 20:10 | NUR ---
Report taken from morning rn.walking rounds done.aaox3.no pain voiced .ambulate sin shoemaker way.bed locked and in lowest position.phone and call light within reach.instructed to call for assistance as needed.
[2018-07-23 01:34] VITALS: BP 120/59
[2018-07-23 04:00] VITALS: BP 126/56
[2018-07-23] MEDS: PIPER-TAZ 3.375 GM 50 ML IV SCH ×2 (05:39→14:00)
[2018-07-23] MEDS: SODIUM CHLORIDE 0.9% 1000ML 1,000 ML IV SCH ×2 (06:06→12:18)
--- NOTE | 2018-07-23 06:10 | NUR ---
PT C/O HEADACHE.NOTIFIED TO MD.JAMES MCKNIGHT.RECEIVED NEW ORDERS.WAITING PHARMACY TO VERIFY THE ORDERS.
[2018-07-23] MEDS ORDERED: ACETAMINOPHEN 325 MG TAB PO PRN (06:15)
--- NOTE | 2018-07-23 06:50 | NUR ---
REPORT GIVEN TO THE ON COMING RN.WALKING ROUNDS DONE.STABLE CONDITION.
[2018-07-23 08:13] VITALS: BP 127/58
[2018-07-23] MEDS: FAMOTIDINE 20 MG/2 ML VIAL IV SCH ×2 (08:26→17:00)
--- NOTE | 2018-07-23 08:27 | NUR ---
Patient alert and responsive, no resp distress, c/o headache and medicated with APAP, Iv fluids running, DESTINY drain in place, past gas but no BM yet, call light within reach, will monitor.
[2018-07-23 11:51] VITALS: BP 141/79
[2018-07-23 16:06] VITALS: BP 137/76
--- NOTE | 2018-07-23 16:09 | NUR ---
Rounds by surgeon and orders to d/c DESTINY drain, medicated patient for pain and DESTINY drain removed, output 50cc, tolerated procedure well, dressing and tape applied, Ok from surgeon's stand point to discharge patient, will call attending at this time
--- NOTE | 2018-07-23 16:42 | NUR ---
Notified Dr. Walden patient was cleared for discharge and will come see patient first before discharge.
[2018-07-23] MEDS ORDERED: PEPCID20 MG PO (18:51)
[2018-07-23] MEDS ORDERED: ZOFRAN4 MG PO (18:51)
[2018-07-23] MEDS ORDERED: SENNOSIDES8.6 MG PO (18:51)
--- NOTE | 2018-07-23 18:51 | NUR ---
Call from attending and states to go ahead and discharge patient. Orders put in place, report given to on coming nurse
--- NOTE | 2018-07-23 18:55 | NUR ---
RECEIVED THE PT IN REPORT.STABLE CONDITION. PER REPORT FROM AM RN IS GOING TO SEND DISCHARGE PRESCRIPTION TO PHARMACY.
--- NOTE | 2018-07-23 19:35 | NUR ---
GIVEN DISCHARGE SUMMARY AND EDUCATION INFORMATION.PROVIDED CONTACTS FOR FOLLOW UP APPOINTMENTS.EDUCATE THE PT GO TO ER OR CONTACT PHYSICIAN INCASE RASH OR CHEST PAIN OCCUR .VERBALIZED UNDERSTANDING.PT WHEELED OFF UNIT VIA WHEEL CHAIR FOR DISCHARGE.
[2018-07-23 19:39] VITALS: BP 122/68
== END 2018-07-23 19:34 | disposition home or self-care (01) | DRG 418 ==
LOC: ER 16:16 → ERHOLD 22:49 → MED/SURG 07-20 17:01
PROVIDERS: ADMIT Internal Medicine; ATTEND Internal Medicine
PROC: BF001ZZ Plain Radiography of Bile Ducts using Low Osmolar Contrast (ICD-10-PCS; 2018-07-21)
PROC: 0FT44ZZ Resection of Gallbladder, Percutaneous Endoscopic Approach (ICD-10-PCS; principal; 2018-07-21 12:30)
DX: K80.43 Calculus of bile duct with acute cholecystitis with obstruction (principal); N17.9 Acute kidney failure, unspecified; N39.0 Urinary tract infection, site not specified; Z88.5 Allergy status to narcotic agent; L40.50 Arthropathic psoriasis, unspecified; Z98.84 Bariatric surgery status; Z82.49 Family history of ischemic heart disease and other diseases of the circulatory system; E66.9 Obesity, unspecified; Z68.37 Body mass index [BMI] 37.0-37.9, adult
CPT/HCPCS: 36415; 71045; 74181; 74300; 76705; 80053; 80061; 81001; 81025; 82150; 82550; 82553; 83036; 83690; 84484; 85025; 87086; 88304; 93005; 99284; J1100; J1610; J1885; J2001; J2250; J2405; J2543; J7030; Q9967

== ENCOUNTER 2018-07-25 03:07 | Inpatient (IN) | payer OTHER ==
[~2018-07-25] VITALS: Ht 167.6 cm; Wt 104.3 kg
[~2018-07-25 03:07] MED LIST: PEPCID20 MG PO; SENNOSIDES8.6 MG PO; ZOFRAN4 MG PO
[2018-07-25] MEDS ORDERED: PANTOPRAZOLE 40 MG 10ML VIAL IV STA (03:21)
[2018-07-25] MEDS ORDERED: ASPIRIN 81 MG CHEW TAB PO ONE (03:30)
[2018-07-25] MEDS ORDERED: BELLADONNA ALK/PHENOBARBITAL 5 ML UDC PO ONE (03:30)
[2018-07-25] MEDS ORDERED: LIDOCAINE VISC 2% SOLN 15 ML UDC PO ONE (03:30)
[2018-07-25] MEDS ORDERED: MAGNESIUM/ALUMINUM/SIMETHICONE 30 ML UDC PO ONE (03:30)
[2018-07-25 04:20] LABS: HEMATOCRIT 37.1 % (34.2-44.1); HEMOGLOBIN 12.4 g/dL (12.0-16.0); MEAN CORPUSCULAR HGB CONC 33.4 g/dL (31-35); MEAN CORPUSCULAR VOLUME 89.8 fL (81-99); RED BLOOD COUNT 4.13 x10e6/uL (3.6-5.1); RED CELL DISTRIBUTION WIDTH 13.2 % (11.7-14.4)
[2018-07-25 04:21] LABS: BASOPHILS % 0.5 % (0.0-1.0); EOSINOPHILS # (AUTO) 0.1 (0.0-0.4); LYMPHOCYTES # (AUTO) 1.2 (1.0-3.2); LYMPHOCYTES % 15.3 % (18.0-39.1); MONOCYTES # (AUTO) 0.6 (0.2-0.8); NEUTROPHILS # (AUTO) 6.1 (2.1-6.9); PLATELET COUNT 329 x10e3/uL (140-360)
[2018-07-25 04:22] LABS: CLARITY,URINE HAZY (CLEAR); COLOR,URINE YELLOW (YELLOW)
[2018-07-25 04:23] LABS: BILIRUBIN,URINE NEGATIVE (NEGATIVE); KETONES,URINE NEGATIVE (NEGATIVE); LEUKOCYTE ESTERASE ,URINE NEGATIVE (NEGATIVE); NITRITE,URINE NEGATIVE (NEGATIVE); PROTEIN,URINE DIPSTICK NEGATIVE (NEGATIVE); URINE UROBILINOGEN 1 mg/dL (0.2 - 1)
[2018-07-25 04:35] LABS: BACTERIA,URINE FEW /HPF; EPITHELIAL CELLS,URINE MODERATE /LPF; RBC,URINE 0-5 /HPF (0-5); WBC,URINE (MAN) 0-5 /HPF (0-5)
--- NOTE | 2018-07-25 04:38 | Diagnostic Imaging Report ---
CHEST SINGLE (PORTABLE), 07/25/2018 3:21 AM Technique: CHEST SINGLE (PORTABLE) Comparison: None available. Clinical history: Chest pain Findings: See Impression Impression: 1. Limited by soft tissue attenuation and portable technique 2. Cardiomediastinal silhouette likely normal given technique. 3. No consolidation. No effusion or pneumothorax. Signed by: Dr Katrina Leo MD on 07/25/2018 4:35 AM
[2018-07-25 04:41] LABS: ALANINE AMINOTRANSFERASE 171 IU/L (0-55); ALBUMIN 3.6 g/dL (3.5-5.0); ALKALINE PHOSPHATASE 149 IU/L (40-150); AMYLASE 726 U/L (25-125); ANION GAP 15.6 mmol/L (8-16); BLOOD UREA NITROGEN 6 mg/dL (7-26); BUN/CREATININE RATIO 6 (6-25); CALCIUM 9.5 mg/dL (8.4-10.2); CARBON DIOXIDE 19 mmol/L (22-29); CHLORIDE 105 mmol/L (98-107); CREATINE KINASE 91 IU/L (29-168); CREATININE, SERUM 1.02 mg/dL (0.57-1.11); EST GLOMERULAR FILTRATION RATE 57 ML/MIN (60-); GLUCOSE 116 mg/dL (74-118); POTASSIUM 3.6 mmol/L (3.5-5.1); SODIUM 136 mmol/L (136-145)
[2018-07-25 04:47] LABS: LIPASE > 1200 U/L (8-78)
[2018-07-25] MEDS ORDERED: PIPER-TAZ 3.375 GM / NS 50ML IV SCH (05:30)
[2018-07-25] MEDS ORDERED: HYDROMORPHONE 1MG/1ML INJ IV PRN (05:30)
[2018-07-25] MEDS: ONDANSETRON HCL INJ 2MG/ML 2ML 2 MG/ML VIAL IV PRN ×2 (06:15→13:35)
[2018-07-25 06:16] VITALS: BP 161/73
[2018-07-25] MEDS: PIPER-TAZ 3.375 GM 50 ML IV SCH ×3 (06:24→22:00)
[2018-07-25] MEDS: SODIUM CHLORIDE 0.9% 1000ML 1,000 ML IV SCH ×4 (06:24→22:03)
[2018-07-25] MEDS ORDERED: HYDROMORPHONE 2MG/ML 2 MG/ML ML IV PRN (06:30)
[2018-07-25] MEDS: METRONIDAZOLE 500MG/NS 100ML 100 ML IV SCH ×4 (07:18→23:57)
[2018-07-25 07:20] VITALS: BP 120/61
[2018-07-25 07:50] VITALS: BP 120/61
[2018-07-25] MEDS: PANTOPRAZOLE 40 MG 10ML VIAL IV SCH (09:48)
[2018-07-25 12:03] VITALS: BP 136/65
[2018-07-25] MEDS ORDERED: MORPHINE SULFATE 2 MG/ML SYR 1ML IV PRN (13:30)
[2018-07-25] MEDS ORDERED: MORPHINE SULFATE INJ 4 MG/ML INJ 1ML IV PRN (13:45)
[2018-07-25 16:10] VITALS: BP 161/74
--- NOTE | 2018-07-25 16:26 | Diagnostic Imaging Report ---
EXAM: MRI MRCP WO DATE: 07/25/2018 5:23 AM INDICATION: Abdominal pain. COMPARISON: MRCP dated 07/20/2018 TECHNIQUE: Multi planar multi sequential MRCP images were obtained without intravenous contrast. FINDINGS: Bibasilar lung linear atelectasis/scarring. Mild signal dropout on out of phase images, suggestive of hepatic steatosis. No T2 hyperintense hepatic lesion. Gallbladder is surgically absent. Mild common bile duct dilatation up to 1.1 cm. Previously noted distal common bile duct filling defect is not visualized on current exam. Small focal area of narrowing of the distal common bile duct measuring 6 mm (series 11, image 11). Spleen, pancreas, and kidneys are grossly unremarkable. No adrenal nodules. No hydronephrosis. Visualized bowel loops are unremarkable. No evidence of bowel obstruction. IMPRESSION: Status post cholecystectomy. Mild common bile duct dilatation without filling defect to suggest choledocholithiasis. Signed by: Dr. Jori Colon MD on 07/25/2018 4:23 PM
--- NOTE | 2018-07-25 19:11 | Consultation ---
DATE OF CONSULTATION: July 25, 2018 SURGICAL CONSULTATION CHIEF COMPLAINT: Abdominal pain. HISTORY OF PRESENT ILLNESS: The patient is a 48-year-old female status post recent laparoscopic cholecystectomy for cholecystitis and cholelithiasis. Patient has been doing well until earlier today when she experienced epigastric abdominal pain, no radiation, with nausea and vomiting. The patient is similar to previous gallbladder attacks. PAST MEDICAL HISTORY: Positive for a sleeve gastrectomy, , recent cholecystectomy. ALLERGIES: SHE IS ALLERGIC TO CODEINE AND TRAMADOL. SOCIAL HABITS: No smoking, no alcohol abuse. REVIEW OF SYSTEMS: No chest pain, shortness of breath or cough. PHYSICAL EXAMINATION: VITALS: Stable. She is afebrile. GENERAL: Patient is awake, alert, in mild discomfort. HEENT: Sclera is nonicteric. NECK: Supple. LUNGS: Clear. HEART: Regular rate and rhythm. ABDOMEN: Soft with mild guarding in the epigastrium. EXTREMITIES: Without cyanosis or edema. The patient's creatinine is 1. Liver functions are elevated with bilirubin of 3.3, alkaline phosphatase 149. Lipase is 1200. White cell count is 8.3. MRCP showed evidence of mild bile duct dilatation without filling defects. ASSESSMENT: Status post cholecystectomy with pancreatitis likely secondary to bile duct stone. PLAN: NPO. GI evaluation for further workup. Job#: [id number] EV
[2018-07-25 21:33] VITALS: BP 163/72
[2018-07-26] VITALS (8 sets, daily range): BP systolic 129–149; BP diastolic 62–70
[2018-07-26] MEDS: SODIUM CHLORIDE 0.9% 1000ML 1,000 ML IV SCH ×5 (01:23→17:27)
[2018-07-26] MEDS: METRONIDAZOLE 500MG/NS 100ML 100 ML IV SCH ×3 (05:22→17:27)
[2018-07-26 05:36] LABS: BASOPHILS % 0.5 % (0.0-1.0); EOSINOPHILS # (AUTO) 0.2 (0.0-0.4); EOSINOPHILS % 3.8 % (0.0-6.0); HEMATOCRIT 31.5 % (34.2-44.1); HEMOGLOBIN 10.3 g/dL (12.0-16.0); LYMPHOCYTES # (AUTO) 1.2 (1.0-3.2); LYMPHOCYTES % 22.2 % (18.0-39.1); MEAN CORPUSCULAR HEMOGLOBIN 29.3 pg (28-32); MEAN CORPUSCULAR HGB CONC 32.7 g/dL (31-35); MEAN CORPUSCULAR VOLUME 89.7 fL (81-99); MONOCYTES # (AUTO) 0.6 (0.2-0.8); MONOCYTES % 10.4 % (4.4-11.3); NEUTROPHILS # (AUTO) 3.4 (2.1-6.9); NEUTROPHILS % 62.7 % (38.7-80.0); PLATELET COUNT 237 x10e3/uL (140-360); RED BLOOD COUNT 3.51 x10e6/uL (3.6-5.1); RED CELL DISTRIBUTION WIDTH 13.3 % (11.7-14.4)
[2018-07-26 05:59] LABS: ALANINE AMINOTRANSFERASE 137 IU/L (0-55); ALBUMIN 2.8 g/dL (3.5-5.0); ALBUMIN/GLOBULIN RATIO 0.9 (0.8-2.0); ALKALINE PHOSPHATASE 130 IU/L (40-150); AMYLASE 1228 U/L (25-125); ANION GAP 13.6 mmol/L (8-16); BLOOD UREA NITROGEN 7 mg/dL (7-26); BUN/CREATININE RATIO 8 (6-25); CALCIUM 8.2 mg/dL (8.4-10.2); CARBON DIOXIDE 18 mmol/L (22-29); CHLORIDE 108 mmol/L (98-107); CREATININE, SERUM 0.86 mg/dL (0.57-1.11); EST GLOMERULAR FILTRATION RATE > 60 ML/MIN (60-); GLUCOSE 69 mg/dL (74-118); POTASSIUM 3.6 mmol/L (3.5-5.1); SODIUM 136 mmol/L (136-145)
[2018-07-26] MEDS: PIPER-TAZ 3.375 GM 50 ML IV SCH ×3 (06:27→22:29)
[2018-07-26 06:45] LABS: LIPASE 2112 U/L (8-78)
[2018-07-26] MEDS: PANTOPRAZOLE 40 MG 10ML VIAL IV SCH (08:56)
[2018-07-27] MEDS: METRONIDAZOLE 500MG/NS 100ML 100 ML IV SCH ×4 (00:18→18:01)
[2018-07-27 01:28] VITALS: BP 145/67
[2018-07-27] MEDS: SODIUM CHLORIDE 0.9% 1000ML 1,000 ML IV SCH ×2 (03:00→18:03)
[2018-07-27] MEDS: PIPER-TAZ 3.375 GM 50 ML IV SCH ×3 (05:11→21:25)
[2018-07-27 06:38] LABS: BASOPHILS % 0.4 % (0.0-1.0); EOSINOPHILS # (AUTO) 0.4 (0.0-0.4); EOSINOPHILS % 5.8 % (0.0-6.0); HEMATOCRIT 30.5 % (34.2-44.1); HEMOGLOBIN 9.9 g/dL (12.0-16.0); LYMPHOCYTES # (AUTO) 1.5 (1.0-3.2); LYMPHOCYTES % 22.3 % (18.0-39.1); MEAN CORPUSCULAR HEMOGLOBIN 29.2 pg (28-32); MEAN CORPUSCULAR HGB CONC 32.5 g/dL (31-35); MONOCYTES # (AUTO) 0.5 (0.2-0.8); MONOCYTES % 8.1 % (4.4-11.3); NEUTROPHILS # (AUTO) 4.2 (2.1-6.9); NEUTROPHILS % 63.1 % (38.7-80.0); PLATELET COUNT 232 x10e3/uL (140-360); RED BLOOD COUNT 3.39 x10e6/uL (3.6-5.1); RED CELL DISTRIBUTION WIDTH 13.5 % (11.7-14.4)
[2018-07-27 06:46] VITALS: BP 134/64
[2018-07-27 07:07] LABS: ALANINE AMINOTRANSFERASE 100 IU/L (0-55); ALBUMIN 2.7 g/dL (3.5-5.0); ALBUMIN/GLOBULIN RATIO 0.8 (0.8-2.0); ALKALINE PHOSPHATASE 122 IU/L (40-150); AMYLASE 253 U/L (25-125); ANION GAP 14.6 mmol/L (8-16); BLOOD UREA NITROGEN 8 mg/dL (7-26); BUN/CREATININE RATIO 11 (6-25); CALCIUM 8.2 mg/dL (8.4-10.2); CARBON DIOXIDE 15 mmol/L (22-29); CHLORIDE 108 mmol/L (98-107); CREATININE, SERUM 0.73 mg/dL (0.57-1.11); EST GLOMERULAR FILTRATION RATE > 60 ML/MIN (60-); LIPASE 228 U/L (8-78); POTASSIUM 3.6 mmol/L (3.5-5.1); SODIUM 134 mmol/L (136-145)
[2018-07-27 07:12] LABS: GLUCOSE 49 mg/dL (74-118)
[2018-07-27] MEDS ORDERED: DEXTROSE 50% SYRINGE 50 ML IV PRN (07:15)
[2018-07-27] MEDS: PANTOPRAZOLE 40 MG 10ML VIAL IV SCH (07:54)
[2018-07-27 07:59] VITALS: BP 142/69
[2018-07-27] MEDS ORDERED: DEXTROSE 5%/0.45% SOD CHL 1,000 ML IV ONE ×2 (08:30→18:15)
[2018-07-27 11:59] VITALS: BP 150/79
[2018-07-27 15:53] VITALS: BP 134/62
[2018-07-27 20:23] VITALS: BP 175/81
[2018-07-28] VITALS (7 sets, daily range): BP systolic 130–185; BP diastolic 59–84
[2018-07-28] MEDS: METRONIDAZOLE 500MG/NS 100ML 100 ML IV SCH ×5 (00:23→23:19)
[2018-07-28] MEDS: PIPER-TAZ 3.375 GM 50 ML IV SCH ×3 (05:31→21:30)
[2018-07-28 06:03] LABS: BASOPHILS % 0.7 % (0.0-1.0); EOSINOPHILS # (AUTO) 0.6 (0.0-0.4); HEMOGLOBIN 9.8 g/dL (12.0-16.0); LYMPHOCYTES # (AUTO) 1.8 (1.0-3.2); LYMPHOCYTES % 31.5 % (18.0-39.1); MEAN CORPUSCULAR HEMOGLOBIN 29.7 pg (28-32); MEAN CORPUSCULAR HGB CONC 33.8 g/dL (31-35); MEAN CORPUSCULAR VOLUME 87.9 fL (81-99); MONOCYTES # (AUTO) 0.6 (0.2-0.8); MONOCYTES % 11.2 % (4.4-11.3); NEUTROPHILS # (AUTO) 2.6 (2.1-6.9); NEUTROPHILS % 45.7 % (38.7-80.0); PLATELET COUNT 254 x10e3/uL (140-360); RED CELL DISTRIBUTION WIDTH 13.7 % (11.7-14.4)
[2018-07-28 06:36] LABS: ALANINE AMINOTRANSFERASE 77 IU/L (0-55); ALBUMIN 2.8 g/dL (3.5-5.0); ALBUMIN/GLOBULIN RATIO 0.9 (0.8-2.0); ALKALINE PHOSPHATASE 106 IU/L (40-150); AMYLASE 182 U/L (25-125); ANION GAP 12.6 mmol/L (8-16); BLOOD UREA NITROGEN 6 mg/dL (7-26); BUN/CREATININE RATIO 7 (6-25); CALCIUM 8.2 mg/dL (8.4-10.2); CARBON DIOXIDE 19 mmol/L (22-29); CHLORIDE 109 mmol/L (98-107); CREATININE, SERUM 0.81 mg/dL (0.57-1.11); EST GLOMERULAR FILTRATION RATE > 60 ML/MIN (60-); GLUCOSE 68 mg/dL (74-118); LIPASE 386 U/L (8-78); POTASSIUM 3.6 mmol/L (3.5-5.1); SODIUM 137 mmol/L (136-145)
[2018-07-28] MEDS: PANTOPRAZOLE 40 MG 10ML VIAL IV SCH (09:20)
[2018-07-28] MEDS: SODIUM CHLORIDE 0.9% 1000ML 1,000 ML IV SCH ×5 (09:20→23:11)
[2018-07-29 00:41] VITALS: BP 177/91
[2018-07-29] MEDS: SODIUM CHLORIDE 0.9% 1000ML 1,000 ML IV SCH ×2 (03:11→07:11)
[2018-07-29] MEDS: PIPER-TAZ 3.375 GM 50 ML IV SCH (05:31)
[2018-07-29 06:07] LABS: ALANINE AMINOTRANSFERASE 68 IU/L (0-55); ALBUMIN 3.1 g/dL (3.5-5.0); ALKALINE PHOSPHATASE 101 IU/L (40-150); AMYLASE 218 U/L (25-125); ANION GAP 13.5 mmol/L (8-16); BLOOD UREA NITROGEN 5 mg/dL (7-26); BUN/CREATININE RATIO 6 (6-25); CALCIUM 8.5 mg/dL (8.4-10.2); CARBON DIOXIDE 20 mmol/L (22-29); CHLORIDE 109 mmol/L (98-107); CREATININE, SERUM 0.84 mg/dL (0.57-1.11); EST GLOMERULAR FILTRATION RATE > 60 ML/MIN (60-); GLUCOSE 73 mg/dL (74-118); LIPASE 471 U/L (8-78); POTASSIUM 3.5 mmol/L (3.5-5.1); SODIUM 139 mmol/L (136-145)
[2018-07-29 06:08] VITALS: BP 129/59
[2018-07-29] MEDS: METRONIDAZOLE 500MG/NS 100ML 100 ML IV SCH (06:19)
[2018-07-29 08:42] VITALS: BP 154/82
[2018-07-29] MEDS: PANTOPRAZOLE 40 MG 10ML VIAL IV SCH (08:42)
[2018-07-29 08:59] VITALS: BP 154/82
== END 2018-07-29 11:14 | disposition home or self-care (01) | DRG 440 ==
LOC: ER 03:07 → ERHOLD 05:31 → MED/SURG2 06:11
PROVIDERS: ADMIT Internal Medicine; ATTEND Internal Medicine
DX: K85.10 Biliary acute pancreatitis without necrosis or infection (principal); K80.50 Calculus of bile duct without cholangitis or cholecystitis without obstruction; E16.2 Hypoglycemia, unspecified; K76.0 Fatty (change of) liver, not elsewhere classified; E66.9 Obesity, unspecified; Z68.37 Body mass index [BMI] 37.0-37.9, adult; Z98.84 Bariatric surgery status; Z88.5 Allergy status to narcotic agent
CPT/HCPCS: 36415; 71045; 74181; 80053; 81001; 82150; 82550; 82553; 82948; 83690; 84484; 85025; 93005; 99284; J2270; J2405; J2543; J7030; J7799